=== PATIENT | male | born 1985 | race Caucasian/White ===

== ENCOUNTER 2017-01-14 19:11 | Emergency (ER) | payer OTHER ==
[~2017-01-14 19:11] MED LIST: FLEXERIL10 MG PO; MOTRIN600 MG PO; PERCOCET 5/3251 TAB PO
[2017-01-14] MEDS ORDERED: TRAMADOL HCL50 M2 PO (20:50)
== END 2017-01-14 20:55 ==
LOC: EDMED 19:11
DX: S86.912A Strain of unspecified muscle(s) and tendon(s) at lower leg level, left leg, initial encounter (principal); Z88.0 Allergy status to penicillin; X50.1XXA Overexertion from prolonged static or awkward postures, initial encounter; Y93.64 Activity, baseball; Y99.8 Other external cause status
CPT/HCPCS: J1885